=== PATIENT | female | born 1945 | race Caucasian/White ===

== ENCOUNTER 2017-12-30 13:55 | Outpatient (CLI) | payer MEDICARE ==
[2017-12-30 15:10] LABS: Mean Corpuscular HGB CONC 32.7 g/dL (32.0-36.0); Mean Corpuscular Hemoglobin 30.1 pg (27.0-31.0); Mean Platelet Volume 7.2 fL (7.4-10.4); Platelet Count 287 thou/uL (130-400); RBC Distribution Width 12.9 % (11.5-14.5); Red Blood Cell (RBC) Count 4.31 mill/uL (4.20-5.40); White Blood Cell (WBC) Count 5.8 thou/uL (4.8-10.8)
[2017-12-30 15:23] LABS: INR-International Normal Ratio 0.9; PTT 25.4 SEC (22.9-36.1); Prothrombin Time 12.2 SEC (12.0-14.7)
[2017-12-30 15:31] LABS: ALT (SGPT) 19 U/L (8-55); AST (SGOT) 23 U/L (5-34); Albumin 4.2 g/dL (3.4-4.8); Alkaline Phosphatase 92 U/L (40-150); Anion Gap 11 mmol/L (10-20); BUN (Urea Nitrogen) 27 mg/dL (9.8-20.1); Bilirubin, Total 0.3 mg/dL (0.2-1.2); Calc. Creatinine Clearance 0 mL/min (70-130); Calcium 9.1 mg/dL (7.8-10.44); Carbon Dioxide 22 mmol/L (23-31); Chloride 107 mmol/L (98-107); Estimated GFR-MDRD 41; Globulin 2.5 g/dL (2.4-3.5); Glucose 105 mg/dL (83-110); Protein, Total 6.7 g/dL (6.0-8.3); Sodium 136 mmol/L (136-145)
--- NOTE | 2018-01-01 17:37 | EKG ---
Test Reason : Blood Pressure : / mmHG Vent. Rate : 062 BPM Atrial Rate : 062 BPM P-R Int : 142 ms QRS Dur : 092 ms QT Int : 460 ms P-R-T Axes : 079 074 122 degrees QTc Int : 466 ms Normal sinus rhythm Possible Left atrial enlargement Left ventricular hypertrophy Nonspecific ST and T wave abnormality Abnormal ECG When compared with ECG of 10-OCT-2016 15:44, Nonspecific T wave abnormality now evident in Inferior leads Confirmed by DR. Guillermo CUNNINGHAM ([id number]) on 01/01/2018 5:37:09 PM Referred By: JAYCEE Confirmed By:DR. Guillermo CUNNINGHAM
== END 2017-12-30 13:56 | disposition home or self-care (01) ==
LOC: LABBT 13:55
PROVIDERS: ATTEND Internal Medicine Cardiovascular Disease
DX: Z01.818 Encounter for other preprocedural examination (principal); I25.119 Atherosclerotic heart disease of native coronary artery with unspecified angina pectoris
CPT/HCPCS: 80053; 85027; 85610; 85730; 93005; 93010

== ENCOUNTER 2018-01-02 06:53 | Day surgery (SDC) | payer MEDICARE ==
[2017-12-30 14:05] VITALS: BMI 25.1
[2018-01-02 08:09] LABS: Cardiac Risk 3.2 (Less than 4.5)
[2018-01-02] MEDS ORDERED: Lidocaine 1% (PF) 30 ML VIAL ONE (08:09)
[2018-01-02] MEDS ORDERED: Midazolam HCl 2 mg/2 ml Vial ONE (09:08)
[2018-01-02] MEDS ORDERED: Fentanyl 100 MCG/2 ML VIAL ONE (09:08)
[2018-01-02] MEDS ORDERED: Heparin 10,000 UNITS/1 ML VIAL ONE (09:27)
[2018-01-02] MEDS ORDERED: Clopidogrel Bisulfate 300 MG TAB ONE (10:15)
[2018-01-02] MEDS ORDERED: hydrALAZINE 20 MG/ML VIAL ONE (10:25)
== END 2018-01-02 15:49 | disposition home or self-care (01) ==
LOC: CCL 06:53
PROVIDERS: ATTEND Internal Medicine Cardiovascular Disease
PROC: 4A023N7 Measurement of Cardiac Sampling and Pressure, Left Heart, Percutaneous Approach (ICD-10-PCS; principal; 2018-01-02)
DX: I25.119 Atherosclerotic heart disease of native coronary artery with unspecified angina pectoris (principal); E11.9 Type 2 diabetes mellitus without complications; I50.9 Heart failure, unspecified; E03.9 Hypothyroidism, unspecified; G25.81 Restless legs syndrome; Z88.5 Allergy status to narcotic agent; Z88.8 Allergy status to other drugs, medicaments and biological substances; Z95.5 Presence of coronary angioplasty implant and graft; Z98.890 Other specified postprocedural states
CPT/HCPCS: 80061; 82962; 85347 ×3; 93005; 93458; C1769 ×2; C1874; C1887; C9600; C9601; 36416; 92928; 92929; 93010; 99152; 99153; J0360; J1644; J2001; J2250; J3010

== ENCOUNTER 2018-04-22 10:28 | Outpatient (CLI) | payer MEDICARE ==
[2018-04-22] MEDS ORDERED: Iopamidol 370 76% 100 ML VIAL ONE (12:19)
--- NOTE | 2018-04-22 13:33 | CT ---
CT ABDOMEN AND PELVIS WITH IV CONTRAST: INDICATIONS: Abdominal pain. TECHNIQUE: Multiple axial tomograms obtained through the abdomen and pelvis with IV enhancement. Oral contrast was given. FINDINGS: The lung base is clear. The liver, spleen, and pancreas appear unremarkable. There is soft tissue prominence at the EG junction. A mucosal mass at this location needs to be excl uded. This density has a mass-like appearance on coronal imaging and measures up to 2.3 cm. The adrenal glands are normal. The kidneys are unremarkable. There is a small, 1.5 cm cyst in the right renal cortex. No hydroneph rosis or urinary calculus. The urinary bladder is unremarkable. Small bowel loops appear normal. There is abnormal mural thickening involving the right colon. Some of this may be due to poor disten tion; however, the bowel wall thickness appears prominent. Recommend correlation with colonoscopy. Diverticulosis of the left colon and sigmoid. Mild mural thickening in this region. No CT evidence of diverticulitis. The aorta is of normal caliber. No adenopathy identified. Images through the pelvis show an unremarkable uterus and adnexa. Postoperative changes of the lumbar spine. Abnormal sclerosis involving the left ilium, probably rel ated to prior bone harvest. IMPRESSION: 1. Abnormal mass like area seen at the esophagogastric junction. Recommend correlation with endosco py. 2. Evidence of mural thickening and mild luminal narrowing in the right colon. Consider colonoscopy to further evaluate. 3. Small right renal cyst. 4. Diverticulosis without CT evidence of diverticulitis. POS: [facility]
== END 2018-04-22 10:29 | disposition home or self-care (01) ==
LOC: SCSCT 10:28
PROVIDERS: ATTEND Internal Medicine Gastroenterology
DX: R10.31 Right lower quadrant pain (principal); N28.1 Cyst of kidney, acquired; K57.90 Diverticulosis of intestine, part unspecified, without perforation or abscess without bleeding; R93.3 Abnormal findings on diagnostic imaging of other parts of digestive tract
CPT/HCPCS: 74177

== ENCOUNTER 2018-10-23 08:33 | Outpatient (CLI) | payer MEDICARE ==
[2018-10-23 11:55] LABS: #Eosinphils 0.2 thou/uL (0.0-0.7); #Lymphocytes 1.9 thou/uL (1.20-3.40); #Monocytes 0.5 thou/uL (0.11-0.59); #Neutrophils 3.7 thou/uL (1.40-6.50); %Basophils 0.3 % (0.0-1.0); %Eosinophils 2.6 % (0.0-10.0); %Lymphocytes 30.1 % (21.0-51.0); %Monocytes 8.1 % (0.0-10.0); %Neutrophils 58.9 % (42.0-75.0); Hemoglobin 11.9 g/dL (12.0-16.0); Mean Corpuscular Hemoglobin 29.2 pg (27.0-31.0); Mean Corpuscular Volume 91.1 fL (78.0-98.0); Mean Platelet Volume 7.4 fL (7.4-10.4); Platelet Count 373 thou/uL (130-400); RBC Distribution Width 12.6 % (11.5-14.5); Red Blood Cell (RBC) Count 4.09 mill/uL (4.20-5.40); White Blood Cell (WBC) Count 6.2 thou/uL (4.8-10.8)
[2018-10-23 11:59] LABS: PTT 26.4 SEC (22.9-36.1); Prothrombin Time 13.2 SEC (12.0-14.7)
[2018-10-23 12:32] LABS: ALT (SGPT) 11 U/L (8-55); AST (SGOT) 17 U/L (5-34); Albumin 3.9 g/dL (3.4-4.8); Alkaline Phosphatase 152 U/L (40-150); Anion Gap 13 mmol/L (10-20); BUN (Urea Nitrogen) 19 mg/dL (9.8-20.1); Bilirubin, Total 0.4 mg/dL (0.2-1.2); Calc. Creatinine Clearance 0 mL/min (70-130); Calcium 9.1 mg/dL (7.8-10.44); Carbon Dioxide 22 mmol/L (23-31); Chloride 109 mmol/L (98-107); Estimated GFR-MDRD 52; Globulin 2.3 g/dL (2.4-3.5); Glucose 69 mg/dL (83-110); Potassium 3.7 mmol/L (3.5-5.1); Protein, Total 6.2 g/dL (6.0-8.3); Sodium 140 mmol/L (136-145)
== END 2018-10-23 08:34 | disposition home or self-care (01) ==
LOC: LABBT 08:33
PROVIDERS: ATTEND Internal Medicine Cardiovascular Disease
DX: Z01.812 Encounter for preprocedural laboratory examination (principal); I25.10 Atherosclerotic heart disease of native coronary artery without angina pectoris
CPT/HCPCS: 80053; 85025; 85610; 85730

== ENCOUNTER 2018-10-29 06:35 | Day surgery (SDC) | payer MEDICARE ==
[2018-10-23 11:54] VITALS: BMI 23.2
[2018-10-29 07:33] LABS: Cardiac Risk 3.5 (Less than 4.5)
[2018-10-29] MEDS ORDERED: Midazolam HCl 2 mg/2 ml Vial ONE (08:38)
[2018-10-29] MEDS ORDERED: Fentanyl 100 MCG/2 ML VIAL ONE (08:38)
[2018-10-29] MEDS ORDERED: Heparin 10,000 UNITS/1 ML VIAL ONE (09:22)
[2018-10-29] MEDS ORDERED: hydrALAZINE 20 MG/ML VIAL ONE ×2 (09:41→11:10)
[2018-10-29] MEDS ORDERED: Morphine 2 MG/ML SYRINGE ONE (10:18)
[2018-10-29] MEDS ORDERED: Iopamidol 370 76% 50 ML VIAL FS ONE (10:53)
[2018-10-29] MEDS ORDERED: Iopamidol 370 76% 100 ML VIAL ONE (10:53)
[2018-10-29] MEDS ORDERED: HYDROcodone/Acetaminophen 5/325 mg Tablet ONE (12:33)
== END 2018-10-29 16:08 | disposition home or self-care (01) ==
LOC: CCL 06:35
PROVIDERS: ATTEND Internal Medicine Cardiovascular Disease
PROC: 4A023N7 Measurement of Cardiac Sampling and Pressure, Left Heart, Percutaneous Approach (ICD-10-PCS; principal; 2018-10-29)
PROC: B2111ZZ Fluoroscopy of Multiple Coronary Arteries using Low Osmolar Contrast (ICD-10-PCS; 2018-10-29)
PROC: 027034Z Dilation of Coronary Artery, One Artery with Drug-eluting Intraluminal Device, Percutaneous Approach (ICD-10-PCS; 2018-10-29)
DX: I25.10 Atherosclerotic heart disease of native coronary artery without angina pectoris (principal); R94.30 Abnormal result of cardiovascular function study, unspecified; I25.2 Old myocardial infarction; I10 Essential (primary) hypertension; Z79.02 Long term (current) use of antithrombotics/antiplatelets; Z79.82 Long term (current) use of aspirin; Z79.84 Long term (current) use of oral hypoglycemic drugs; Z79.899 Other long term (current) drug therapy; Z88.5 Allergy status to narcotic agent; Z88.6 Allergy status to analgesic agent; Z88.8 Allergy status to other drugs, medicaments and biological substances; Z95.5 Presence of coronary angioplasty implant and graft
CPT/HCPCS: 36415; 76942; 80061; 85347; 92928; 93005; 93458; 96374; 99152; 99153; C1769; C1874; C9600; J0360; J1644; J2250; J2270; J3010

== ENCOUNTER 2019-02-02 09:23 | Outpatient (CLI) | payer MEDICARE ==
--- NOTE | 2019-02-02 10:18 | MMO ---
Bilateral MAMMO Bilat Screen [facility]. CLINICAL HISTORY: Patient is 73 years old and is seen for screening. The patient has no family history of breast cancer. The patient has no personal history of cancer. VIEWS: The views performed were: bilateral craniocaudal with tomosynthesis and bilateral mediolateral oblique with tomosynthesis. FILMS COMPARED: The present examination has been compared to prior imaging studies performed at [facility] on 08/18/2006, and at [facility] on 04/18/1996 and 09/11/1999. MAMMOGRAM FINDINGS: There are scattered fibroglandular densities. There are benign appearing calcifications seen in both breasts. There are no suspicious masses, suspicious calcifications, or new areas of architectural distortion. IMPRESSION: THERE IS NO MAMMOGRAPHIC EVIDENCE OF MALIGNANCY. A ROUTINE FOLLOW-UP MAMMOGRAM IN 1 YEAR IS RECOMMENDED. THE RESULTS OF THIS EXAM WERE SENT TO THE PATIENT. ACR BI-RADS Category 2 - Benign finding MAMMOGRAPHY NOTE: 1. A negative mammogram report should not delay a biopsy if a dominant of clinically suspicious mass is present. 2. Approximately 10% to 15% of breast cancers are not detected by mammography. 3. Adenosis and dense breasts may obscure an underlying neoplasm.
== END 2019-02-02 09:24 | disposition home or self-care (01) ==
LOC: BICMAMMO 09:23
PROVIDERS: ATTEND Family Medicine
DX: Z12.31 Encounter for screening mammogram for malignant neoplasm of breast (principal)
CPT/HCPCS: 77063; 77067

== ENCOUNTER 2019-12-22 18:01 | Emergency (ER) | payer MEDICARE ==
[2019-12-22 18:31] LABS: #Eosinphils 0.1 thou/uL (0.0-0.7); #Lymphocytes 2.2 thou/uL (1.20-3.40); #Monocytes 0.7 thou/uL (0.11-0.59); #Neutrophils 3.5 thou/uL (1.40-6.50); %Basophils 0.7 % (0.0-1.0); %Eosinophils 2.2 % (0.0-10.0); %Lymphocytes 33.6 % (21.0-51.0); %Monocytes 10.5 % (0.0-10.0); %Neutrophils 53.1 % (42.0-75.0); Hemoglobin 13.1 g/dL (12.0-16.0); Mean Corpuscular HGB CONC 33.5 g/dL (32.0-36.0); Mean Corpuscular Hemoglobin 31.7 pg (27.0-31.0); Mean Corpuscular Volume 94.5 fL (78.0-98.0); Mean Platelet Volume 8.5 fL (7.4-10.4); Platelet Count 230 thou/uL (130-400); RBC Distribution Width 13.3 % (11.5-14.5); Red Blood Cell (RBC) Count 4.12 mill/uL (4.20-5.40); White Blood Cell (WBC) Count 6.6 thou/uL (4.8-10.8)
--- NOTE | 2019-12-22 18:42 | RAD ---
Portable frontal chest radiograph: 12/22/2019 COMPARISON: 10/10/2016 HISTORY: Hypertension and headache FINDINGS: There is prominent degenerative change of bilateral glenohumeral joints. There is stable wi dening of the right acromioclavicular interspace. Coronary arterial calcification and/or stent material present. No pneumothorax, pleural fluid, focal consolidation, or alveolar edema. IMPRESSION: No acute findings.
[2019-12-22 18:51] LABS: ALT (SGPT) 21 U/L (8-55); AST (SGOT) 20 U/L (5-34); Albumin 4.3 g/dL (3.4-4.8); Alkaline Phosphatase 133 U/L (40-110); Anion Gap 16 mmol/L (10-20); BUN (Urea Nitrogen) 34 mg/dL (9.8-20.1); Bilirubin, Total 0.3 mg/dL (0.2-1.2); Calc. Creatinine Clearance 0 mL/min (70-130); Carbon Dioxide 15 mmol/L (23-31); Chloride 112 mmol/L (98-107); Estimated GFR-MDRD 33; Globulin 2.4 g/dL (2.4-3.5); Glucose 82 mg/dL (83-110); Potassium 4.4 mmol/L (3.5-5.1); Protein, Total 6.7 g/dL (6.0-8.3); Sodium 139 mmol/L (136-145)
--- NOTE | 2019-12-22 19:14 | CT ---
Head CT without contrast 12/22/2019: COMPARISON: 10/10/2016 HISTORY: Elevated blood pressure, headache TECHNIQUE: Axial CT imaging at 5 mm intervals from vertex through skull base without contrast FINDINGS: The visualized paranasal sinuses and mastoid air cells are well aerated. No displaced twan rial fracture. No intracranial hemorrhage, midline shift, mass effect, or ventricular enlargement. IMPRESSION: No acute findings.
[2019-12-22] MEDS ORDERED: Acetaminophen 500 MG TAB ONE (19:46)
[2019-12-22] MEDS ORDERED: Metoclopramide HCl 10 MG/2 ML VIAL ONE (19:46)
[2019-12-22] MEDS ORDERED: diphenhydrAMINE 50 MG/ML VIAL ONE (19:46)
[2019-12-22] MEDS ORDERED: hydrALAZINE 25 MG TAB ONE (20:02)
--- NOTE | 2019-12-26 00:59 | EKG ---
Test Reason : Blood Pressure : / mmHG Vent. Rate : 067 BPM Atrial Rate : 067 BPM P-R Int : 132 ms QRS Dur : 092 ms QT Int : 438 ms P-R-T Axes : 066 045 078 degrees QTc Int : 462 ms Sinus rhythm with frequent Premature ventricular complexes in a pattern of bigeminy Possible Left atrial enlargement Left ventricular hypertrophy with repolarization abnormality Abnormal ECG Confirmed by CHRISTOFER NEWTON DO ([id number]), newspaper copy editor MIESHA WIGGINS ([id number]) on 12/26/2019 12:59:30 AM Referred By: Confirmed By:CHRISTOFER NEWTON DO
--- NOTE | 2019-12-26 00:59 | EKG ---
Test Reason : Blood Pressure : / mmHG Vent. Rate : 072 BPM Atrial Rate : 072 BPM P-R Int : 128 ms QRS Dur : 098 ms QT Int : 404 ms P-R-T Axes : 056 033 072 degrees QTc Int : 442 ms Sinus rhythm with frequent Premature ventricular complexes in a pattern of bigeminy Possible Left atrial enlargement Borderline ECG Confirmed by CHRISTOFER NEWTON DO ([id number]), commercial production editor MIESHA WIGGINS ([id number]) on 12/26/2019 12:59:28 AM Referred By: Confirmed By:CHRISTOFER NEWTON DO
== END 2019-12-22 21:25 | disposition home or self-care (01) ==
LOC: ERS 18:01
DX: I13.0 Hypertensive heart and chronic kidney disease with heart failure and stage 1 through stage 4 chronic kidney disease, or unspecified chronic kidney disease (principal); E11.22 Type 2 diabetes mellitus with diabetic chronic kidney disease; N18.3 Chronic kidney disease, stage 3 (moderate); I50.9 Heart failure, unspecified; R00.8 Other abnormalities of heart beat; M10.9 Gout, unspecified; G47.00 Insomnia, unspecified; I25.10 Atherosclerotic heart disease of native coronary artery without angina pectoris; E03.9 Hypothyroidism, unspecified; E78.5 Hyperlipidemia, unspecified; E78.00 Pure hypercholesterolemia, unspecified; M19.90 Unspecified osteoarthritis, unspecified site; F32.9 Major depressive disorder, single episode, unspecified; Z79.899 Other long term (current) drug therapy; Z79.02 Long term (current) use of antithrombotics/antiplatelets; Z79.82 Long term (current) use of aspirin; Z79.84 Long term (current) use of oral hypoglycemic drugs
CPT/HCPCS: 70450; 71045; 80053; 84484; 85025; 93005; 96365; 96375; J1200; J2765

== ENCOUNTER 2020-06-26 08:48 | Inpatient (IN) | payer MEDICARE, OTHER ==
[2020-06-26] MEDS ORDERED: Succinylcholine Chloride 20 MG/ML 10 ml SYRINGE FS ONE (09:02)
[2020-06-26] MEDS ORDERED: Calcium Chloride 1 GM/10 ML Abboject SYRINGE ONE (09:02)
[2020-06-26] MEDS ORDERED: EPINEPHrine 1 MG/10 ML Abboject SYRINGE ONE ×3 (09:02→15:16)
[2020-06-26 09:14] LABS: #Lymphocytes 0.9 thou/uL (1.20-3.40); #Monocytes 0.7 thou/uL (0.11-0.59); #Neutrophils 11.8 thou/uL (1.40-6.50); %Basophils 0.1 % (0.0-1.0); %Eosinophils 0.2 % (0.0-10.0); %Lymphocytes 6.6 % (21.0-51.0); %Monocytes 5.4 % (0.0-10.0); %Neutrophils 87.7 % (42.0-75.0); Hemoglobin 13.5 g/dL (12.0-16.0); Mean Corpuscular Hemoglobin 30.9 pg (27.0-31.0); Mean Corpuscular Volume 93.6 fL (78.0-98.0); Mean Platelet Volume 7.9 fL (7.4-10.4); Platelet Count 301 thou/uL (130-400); RBC Distribution Width 12.2 % (11.5-14.5); Red Blood Cell (RBC) Count 4.36 mill/uL (4.20-5.40); White Blood Cell (WBC) Count 13.5 thou/uL (4.8-10.8)
--- NOTE | 2020-06-26 09:22 | RAD ---
EXAM: XR Chest 1 View Portable PROVIDED CLINICAL HISTORY: Chest pain COMPARISON: 12/22/2019 FINDINGS: Cardiac and mediastinal silhouette is within normal limits. There is diffuse bilateral airspace disea se, predominating in the perihilar regions. Minimal blunting of the right costophrenic angle. No evidence for left pleural fluid. No evidence for pneumothorax. IMPRESSION: Diffuse bilateral airspace disease and blunting of the right costophrenic angle that may reflect pleu ral fluid.
[2020-06-26 09:36] LABS: ALT (SGPT) 25 U/L (8-55); AST (SGOT) 28 U/L (5-34); Albumin 3.6 g/dL (3.4-4.8); Alkaline Phosphatase 112 U/L (40-110); Anion Gap 15 mmol/L (10-20); BUN (Urea Nitrogen) 22 mg/dL (9.8-20.1); Bilirubin, Total 0.4 mg/dL (0.2-1.2); CK (CPK) 131 U/L (29-168); Calc. Creatinine Clearance 0 mL/min (70-130); Calcium 8.7 mg/dL (7.8-10.44); Carbon Dioxide 19 mmol/L (23-31); Chloride 111 mmol/L (98-107); Estimated GFR-MDRD 52; Globulin 2.4 g/dL (2.4-3.5); Glucose 147 mg/dL (83-110); Lipase 13 U/L (8-78); Potassium 4.7 mmol/L (3.5-5.1); Sodium 140 mmol/L (136-145)
[2020-06-26] MEDS ORDERED: cefTRIAXone\\ROCEPHIN 2 GM VIAL ONE (10:02)
[2020-06-26] MEDS ORDERED: Furosemide 40 MG/4 ML VIAL ONE (10:02)
[2020-06-26] MEDS ORDERED: Azithromycin 500 MG VIAL ONE (10:03)
[2020-06-26 10:41] LABS: SARS-CoV-2 NAA Rapid Test Not Detected (NotDetected)
[2020-06-26 12:38] LABS: Troponin I 0.032 ng/mL (< 0.028)
--- NOTE | 2020-06-26 13:03 | PDOC.HHP ---
Hospitalist HPI - History of Present Illness cough and difficulty breathing History of Present Illness: PCP: Dr. Benedict The patient is a 75-year-old female with past medical history significant for [place] , respiratory failure requiring intubation, congestive heart failure, and diabetes type 2. She presents to the ER today after being awake coughing all night. She states that she was of normal health until last night when she suddenly had difficulty breathing and had a cough that produced pink frothy tinged sputum. She states that she has been taking all of her medications as prescribed however she did not take this morning's dose. Patient endorses that she has some midsternal chest pain associated with the cough, she states it was not exacerbated or relieved with movement or rest. She was awake all night and she was unable to lie down and breathe effectively and the cough would not stop. She denies any swelling, ill contacts, abdominal pain, change in bowel or bladder habits. Patient states that she had an echo 2 months ago that was normal, will try to obtain results from Dr. Marlow. ED Course: Prior to arrival EMS administered 324 mg aspirin, 3 sprays nitro, and gave 1 inch Nitropaste to chest wall. In the ER they completed lab work, COVID swab, chest x-ray, and EKG. Hospitalist ROS - Review of Systems Constitutional: denies: fever, chills, sweats, weakness, malaise, other Eyes: denies: pain, vision change, conjunctivae inflammation, eyelid inflammation, redness, other ENT: denies: ear pain, ear discharge, nose pain, nose discharge, nose congestion , mouth pain, mouth swelling, throat pain, throat swelling, other Respiratory: reports: cough, shortness of breath, SOB with excertion, pleuritic pain, sputum (pink tinged) Cardiovascular: reports: chest pain Gastrointestinal: denies: nausea, vomiting, abdominal pain, diarrhea, constipation, melena, hematochezia, other Genitourinary: denies: dysuria, frequency, incontinence, hematuria, retention, other Musculoskeletal: denies: neck pain, shoulder pain, arm pain, back pain, hand pain, leg pain, foot pain, other Skin: denies: rash, lesions, haroldo, bruising, other Neurological: denies: weakness, numbness, incoordination, change in speech, confusion, seizures, other All other systems reviewed; all pertinent +/- noted in HPI/Subj - Medication Medications: Allergies: amitriptyline, aspirin (Unconfirmed), atorvastatin, carisoprodol, codeine sulfate, codeine (Unconfirmed), lisinopril, metformin, milnacipran, naproxen, nefazodone, niacin, NSAIDS (Non-Steroidal Anti-Inflamma, phenytoin, pioglitazone , pravastatin, rosuvastatin, sevelamer, simvastatin, sotalol (Unconfirmed), Udsoyek-Rsd-Vrh Reductase Inhibitor, tramadol, venlafaxine, zolpidem Current Medications: Lasix oral FriJun 26, 2020 10:00 JIGAR Story Angela TABLET : Strength - 40 mg : ORAL Patient Dose: 40 mg Oral every 12 hours PRN. isosorbide mononitrate FriJun 26, 2020 10:00 JIGAR Story Angela TABLET : Strength - 10 mg : ORAL Patient Dose: 10 mg Oral once a day. Plavix FriJun 26, 2020 10:00 JIGAR Story Angela TABLET : Strength - 75 mg : ORAL Patient Dose: 75 mg Oral once a day. pramipexole FriJun 26, 2020 10:00 JIGAR Story Angela tablet : Strength - 1 mg : ORAL Patient Dose: 1 mg Oral once a day. Toprol XL FriJun 26, 2020 10:00 JIGAR Story Angela tablet extended release 24 hr : Strength - 25 mg : ORAL Patient Dose: 0.5 tab(s) Oral 2 times a day (before meals). ferrous sulfate FriJun 26, 2020 10:00 JIGAR Story Angela tablet : Strength - 325 mg (65 mg iron) : ORAL Patient Dose: 325 mg Oral once a day. levothyroxine oral FriJun 26, 2020 10:00 JIGAR Story Angela tablet : Strength - 125 mcg : ORAL Patient Dose: 150 mcg Oral once a day (in the morning). Januvia FriJun 26, 2020 10:00 JIGAR Story Angela tablet : Strength - 50 mg : ORAL Patient Dose: 50 mg Oral once a day (in the morning). Entresto FriJun 26, 2020 10:01 JIGAR Story Angela tablet : Strength - 97 mg-103 mg : ORAL Patient Dose: 1 tab(s) Oral 2 times a day (before meals). Trintellix Mon Jun 26, 2020 10:01 JIGAR Story, Olena tablet : Strength - 5 mg : ORAL Patient Dose: 5 mg Oral once a day (in the morning). Hospitalist History - Past Medical History Source: patient, RN notes reviewed, old records Cardiac: reports: CAD, CHF, HTN, [place] Pulmonary: reports: previously intubated Gastrointestinal: reports: Constipation Psych: reports: Depression Musculoskeletal: reports: Osteoarthritis Rheumatologic: reports: Gout Renal/: reports: Chronic renal failure Endocrine: reports: Diabetes - Past Surgical History Past Surgical History: reports: Other Other Surgical History: 9 cardiac stents, 1 stent in right carotid, left TKR, low back surgery, colon resection, hernia repair, rectocele repair - Family History Family History: reports: no pertinent history - Social History Smoking Status: Never smoker Alcohol: reports: None Drugs: reports: none Living Situation: Alone Occupation: retired Activity level: independent ambulation - Exam General Appearance: NAD, awake alert General - other findings: VS: BP 172/78, P 92, R 23, T 98.7, O2 100% 2L Neck: supple, no lymphadenopathy, JVD Heart: RRR (S3 auscultated), no murmur, no rubs, normal peripheral pulses Respiratory: normal chest expansion, rhonchi, tachypneic Respiratory - other findings: Increased GONSALVES, able to complete full sentences, diminished bilateral Gastrointestinal: soft, non-tender, non-distended, normal bowel sounds Extremities: no cyanosis, no edema Neurological: cranial nerve grossly intact, no focal deficits Psychiatric: normal affect, normal behavior Hospitalist Results - Labs Result Diagrams: 06/26/20 09:06 06/26/20 09:06 Lab results: WBC 13.5 thou/uL (4.8-10.8) H 06/26/20 09:06 Hgb 13.5 g/dL (12.0-16.0) 06/26/20 09:06 Hct 40.8 % (36.0-47.0) 06/26/20 09:06 MCV 93.6 fL (78.0-98.0) 06/26/20 09:06 Plt Count 301 thou/uL (130-400) 06/26/20 09:06 Neutrophils % 87.7 % (42.0-75.0) H 06/26/20 09:06 Sodium 140 mmol/L (136-145) 06/26/20 09:06 Potassium 4.7 mmol/L (3.5-5.1) 06/26/20 09:06 Chloride 111 mmol/L (98-107) H 06/26/20 09:06 Carbon Dioxide 19 mmol/L (23-31) L 06/26/20 09:06 BUN 22 mg/dL (9.8-20.1) H 06/26/20 09:06 Creatinine 1.04 mg/dL (0.6-1.1) 06/26/20 09:06 Glucose 147 mg/dL (83-110) H 06/26/20 09:06 Calcium 8.7 mg/dL (7.8-10.44) 06/26/20 09:06 Total Bilirubin 0.4 mg/dL (0.2-1.2) 06/26/20 09:06 AST 28 U/L (5-34) 06/26/20 09:06 ALT 25 U/L (8-55) 06/26/20 09:06 Alkaline Phosphatase 112 U/L (40-110) H 06/26/20 09:06 Creatine Kinase 131 U/L (29-168) 06/26/20 09:06 Troponin I 0.032 ng/mL (< 0.028) H 06/26/20 12:01 B-Natriuretic Peptide 1571.8 pg/mL (0-100) H 06/26/20 09:00 Serum Total Protein 6.0 g/dL (6.0-8.3) 06/26/20 09:06 Albumin 3.6 g/dL (3.4-4.8) 06/26/20 09:06 Lipase 13 U/L (8-78) 06/26/20 09:06 Laboratory Tests 06/26/20 06/26/20 06/26/20 09:00 09:06 09:35 Troponin I 0.022 B-Natriuretic Peptide 1571.8 H SARS-CoV-2 Rap RNA(RT-PCR) Not Detected 06/26/20 12:01 Troponin I 0.032 H B-Natriuretic Peptide SARS-CoV-2 Rap RNA(RT-PCR) - EKG Interpretation EKG: SR 97 bpm, no ectopic beats - Radiology Interpretation Chest x-ray Status: image reviewed by me, report reviewed by me Additional Comment: FINDINGS: Cardiac and mediastinal silhouette is within normal limits. There is diffuse bilateral airspace disease, predominating in the perihilar regions. Minimal blunting of the right costophrenic angle. No evidence for left pleural fluid. No evidence for pneumothorax. IMPRESSION: Diffuse bilateral airspace disease and blunting of the right costophrenic angle that may reflect pleural fluid. Hospitalist H&P A/P - Problem (1) Acute respiratory failure with hypoxia Code(s): J96.01 - ACUTE RESPIRATORY FAILURE WITH HYPOXIA Status: Acute (2) Hypertensive emergency Code(s): I16.1 - HYPERTENSIVE EMERGENCY Status: Acute (3) CHF (congestive heart failure) Code(s): I50.9 - HEART FAILURE, UNSPECIFIED Status: Acute (4) Acute pulmonary edema Code(s): J81.0 - ACUTE PULMONARY EDEMA Status: Acute (5) Depression Code(s): F32.9 - MAJOR DEPRESSIVE DISORDER, SINGLE EPISODE, UNSPECIFIED Status : Chronic (6) Type 2 diabetes mellitus Status: Chronic Qualifiers: Diabetes mellitus complication status: without complication Qualified Code( s): E11.9 - Type 2 diabetes mellitus without complications - Plan Plan: Respiratory failure with hypoxia Patient requiring 2 L of oxygen when normally not oxygen dependent at home Maintaining 95% O2 saturation on 2 L, able to complete sentences Continue to monitor O2 saturations with vital signs and PRN Wean oxygen when able Rapid COVID-19 swab negative Hypertensive emergency Restart home medications PRN antihypertensives to keep SBP less than 180 Cardiology to be consulted Congestive heart failure Obtain echo results from 2 months ago Continue to diurese Acute pulmonary edema Repeat chest x-ray in a.m. Continue monitor respiratory status Possible pneumonia Continue IV antibiotics Repeat chest x-ray in a.m. Depression Restart home medications Type 2 diabetes Monitor Accu-Cheks AC at bedtime Mild SSI CODE STATUS: Full Surrogate decision maker: DaughterChela and son Lenny Guillermo Patient discussed with Dr. Corral and Dr. Marlow
[2020-06-26 13:38] LABS: Actual Bicarbonate (HCO3a) 12.6 mEq/L (22-28); Base Excess (BEa) -18.7 mEq/L (-2.0 to +3.0); Calcium, Ionized (arterial) 1.23 mmol/L (1.12-1.30); Carboxyhemoglobin (COHb) 0.9 gm% (0.0-3.0); Hemoglobin (Hb) 15.6 g/dL (12.0-16.0); Potassium - ABG Lab 4.62 mmol/L (3.70-5.30)
[2020-06-26 13:39] LABS: O2 Tension (PaO2), arterial 58.8 mmHg (> 70.0); Puncture Site RRA; pH, Arterial 7.01 (7.35-7.45)
[2020-06-26] MEDS ORDERED: Midazolam HCl 2 mg/2 ml Vial IVP SCH (13:45)
[2020-06-26] MEDS ORDERED: Dextrose 50% Abboject 50 ML SYRINGE SLOW IVP PRN (13:47)
[2020-06-26] MEDS ORDERED: Dextrose 5% in Water 1,000 ML IV PRN (13:47)
[2020-06-26] MEDS ORDERED: HumaLOG 300 UNITS/3 ML VIAL SC PRN ×2 (13:47)
[2020-06-26] MEDS ORDERED: Furosemide 40 MG/4 ML VIAL SLOW IVP SCH (14:00)
[2020-06-26 14:10] VITALS: BP 124/63
--- NOTE | 2020-06-26 14:10 | PDOC.HOSPP ---
- Subjective Encounter Date: 06/26/20 Encounter Time: 14:08 Subjective: renato admitted out of ED with PNA, hypoxemia. decompensated in elevator on way to Rm [id number]. on my arrival she was mottled with foamy pinkish spum being suctiond from mouth. - Objective Result Diagrams: 06/26/20 09:06 06/26/20 09:06 - Exam Neck: JVD Heart: RRR Respiratory - other findings: diffuse coarse BS with rhonchi Gastrointestinal: soft, non-distended, normal bowel sounds Extremities: no edema Hosp A/P (1) Acute pulmonary edema Code(s): J81.0 - ACUTE PULMONARY EDEMA Status: Acute (2) Hypertensive crisis Code(s): I16.9 - HYPERTENSIVE CRISIS, UNSPECIFIED Status: Acute (3) CAD (coronary artery disease) Code(s): I25.10 - ATHSCL HEART DISEASE OF [place] CORONARY ARTERY W/O ANG PCTRS Status: Acute Qualifiers: Coronary Disease-Associated Artery/Lesion type: [place] artery [place] vs. transplanted heart: [place] heart Associated angina: without angina Qualified Code(s): I25.10 - Atherosclerotic heart disease of [place] coronary artery without angina pectoris (4) Acute respiratory failure with hypoxia and hypercapnia Code(s): J96.01 - ACUTE RESPIRATORY FAILURE WITH HYPOXIA; J96.02 - ACUTE RESPIRATORY FAILURE WITH HYPERCAPNIA Status: Acute (5) Metabolic acidosis Code(s): E87.2 - ACIDOSIS Status: Acute - Plan patient intubated in room by ED physician subsequently became asystolic CPR started, multiple doses epinephrin then in PEA, cacium given with susequent RSR moved to CCU Dr Will assumed care TROP, ABG , CXR pending 1 hr spent face to face
--- NOTE | 2020-06-26 14:20 | PDOC.EVN ---
Event Note - Event Note Event Note: pulmonary edema, initial EKG- sinus rhythm with no acute abnormality
[2020-06-26 14:25] LABS: Actual Bicarbonate (HCO3a) 8.2 mEq/L (22-28); Calcium, Ionized (arterial) 1.44 mmol/L (1.12-1.30); Carboxyhemoglobin (COHb) 0.6 gm% (0.0-3.0); Hemoglobin (Hb) 14.4 g/dL (12.0-16.0); O2 Tension (PaO2), arterial 263.7 mmHg (> 70.0); Potassium - ABG Lab 5.33 mmol/L (3.70-5.30)
[2020-06-26 14:27] LABS: pH, Arterial 7.01 (7.35-7.45)
[2020-06-26 14:28] LABS: Puncture Site RRA
[2020-06-26] MEDS ORDERED: Sodium Bicarb 50 MEQ/50 ML Abboject 8.4% SYRINGE ONE ×2 (14:28→15:11)
[2020-06-26 14:32] LABS: Troponin I 0.029 ng/mL (< 0.028)
[2020-06-26] MEDS ORDERED: Sodium Bicarbonate 150 MEQ in Dextrose 5% in Water 1,000 ML IV SCH (14:45)
[2020-06-26] MEDS ORDERED: Vecuronium 10 MG VIAL ONE (14:53)
--- NOTE | 2020-06-26 14:59 | RAD ---
CHEST 1 VIEW: HISTORY: Status post intubation. FINDINGS: Endotracheal tube placed in satisfactory location. NG tube is placed, the tip is in the distal esoph will. There is extensive bilateral alveolar edema which his definitely worse when compared to the earlier e xam, 9:11 a.m. the same date. There is evidence for some costophrenic angle blunting. IMPRESSION: Endotracheal tube in satisfactory location. Nasogastric tube tip is still in the distal esophagus. Findings were discussed with Nurse Otis who indicated that the NG tube had been pulled out after this study. Worsening with more extensive confl uent bilateral edema, particularly in the mid and upper lung zones bilaterally. CODE CR POS: [facility]
[2020-06-26] MEDS ORDERED: Meropenem 2 GM, Admixture Fee 1 EACH in Sodium Chloride 0.9% 100 ML IVPB SCH (15:00)
[2020-06-26] MEDS ORDERED: EPINEPHrine 4 MG in Dextrose 5% in Water 250 ML IV SCH (15:15)
[2020-06-26] MEDS ORDERED: Vancomycin 1 GM in Premix Bag 1 BAG IVPB SCH ×2 (16:00→21:00)
--- NOTE | 2020-06-26 16:39 | CON ---
DATE OF CONSULTATION: 06/26/2020 REASON FOR CONSULTATION: Shortness of breath. HISTORY OF PRESENT ILLNESS: Ms. Ceballos was a 75-year-old white female, who came to the hospital after having coughing yesterday. Every time she coughs, she would have chest pain. She comes in. She suddenly got severely short winded and had to be intubated to protect her airway. Her sats were low. It was very hard to oxygenate her. She was admitted to the ICU. On my evaluation, she was intubated, off any sedation. She apparently had a PEA arrest downstairs in the ER and brief episodes of CPR. On my evaluation, she has myoclonic jerking, unable to give any history due to being intubated. PAST MEDICAL HISTORY: 1. Coronary artery disease, status post stenting to the OM, RCA and LAD. 2. Earlier this year, she had the flu and had a similar admission, where she was intubated and had a reduced EF. At that point, her EF was about 35% to 40% and she had been on medications for heart failure and the last echo was in March of this year and her EF was 45% to 50%, significantly improved. 3. Hyperthyroidism. 4. Anxiety and depression. 5. Irritable bowel syndrome. SURGICAL HISTORY: 1. Left carotid surgery in 2001. 2. Lumbar fusion. 3. Several heart catheterizations in the past. 4. Hernia repair. 5. Left total knee replacement. 6. Lens implants bilaterally. FAMILY HISTORY: Heart disease in family members. SOCIAL HISTORY: No alcohol, tobacco, or drugs. ALLERGIES: 1. AMBIEN. 2. ELAVIL. 3. NIACIN. 4. ACTOS. 5. ALEVE. 6. CRESTOR. 7. DILANTIN. 8. EFFEXOR. 9. LIPITOR. 10. METFORMIN. 11. PRAVACHOL. 12. SAVELLA. 13. SOTALOL. 14. TRAMADOL. 15. ZOCOR. 16. SOMA. OUTPATIENT MEDICATIONS: Reviewed. REVIEW OF SYSTEMS: Unobtainable. PHYSICAL EXAMINATION: VITAL SIGNS: Reviewed. On my evaluation, blood pressure was 128/62, pulse in the 120s, saturating 86% on 100% FiO2 on the ventilator. Frothy white sputum coming out of the tube. GENERAL: Sedated, intubated. NECK: Supple. LUNGS: Have coarse breath sounds bilaterally. CARDIOVASCULAR: Tachycardic. Distant heart sounds. ABDOMEN: Soft. EXTREMITIES: No edema. SKIN: Warm and dry. LABORATORY DATA: Laboratory work was reviewed. White count of 13, hemoglobin 13, hematocrit 40, and platelet count of 301. ABG, pH of 7.01. Chemistries; troponin was actually negative x3. Her initial troponin was 0.02. Her second one was 0.03, which was in the indeterminate range, and the next one was already coming down at 0.029. BNP was 1571. Glucose was 174, albumin of 3.6. COVID PCR was negative. Influenza A and B were both negative. Respiratory viral culture was pending at time of this dictation. Chest x-ray was reviewed. PLAN AND ASSESSMENT: 1. Acute hypoxic respiratory insufficiency. 2. Metabolic acidosis. 3. Most likely multilobar pneumonia. 4. Exacerbated by likely flash pulmonary edema. Ms. Ceballos was severely ill and actually had to be coded about four times before the family was contacted and they decided to make her DNR/DNI. She was on epinephrine drip. Stat echocardiogram was ordered for concern of either new onset severe reduced cardiomyopathy or new severe MR. At this point, it was unclear, but most likely, there was a septic-type picture. Family decided to disconnect and she just a few minutes later. 90 minutes of critical care time. Job ID: [id number]
[2020-06-26] MEDS ORDERED: Aspirin Chewable 81 MG TAB PO SCH (21:00)
[2020-06-26] MEDS ORDERED: Meropenem 2 GM in Admixture Fee 1 EACH IVPB SCH (22:00)
--- NOTE | 2020-06-27 00:08 | CON ---
DATE OF CONSULTATION: 06/26/2020 HISTORY OF PRESENT ILLNESS: Ms. Ceballos was a 75-year-old female admitted with complaints of shortness of breath, cough, and pleurisy. She was admitted to the telemetry unit. A code green was called. Code tamika was called shortly thereafter and she was intubated and transferred to the ICU. PAST MEDICAL HISTORY: Remarkable for: 1. Coronary artery disease, status post multiple stents, which were all patent when Dr. Marlow took her to the slab stripper just over a year ago. 2. History of respiratory failure at [facility] with influenza, complicated by congestive heart failure with improvement of her left ventricular function afterwards per my discussion with Dr. Marlow. 3. History of diabetes. 4. History of hypertension. 5. History of respiratory failure in the past. 6. History of depression. 7. History of osteoarthritis. 8. History of gout. 9. History of chronic kidney disease. 10. History of carotid stenting on the right. 11. History of multiple cardiac stents that were patent on last cardiac catheterization. 12. History of left knee replacement. 13. History of low back surgery. 14. History of colon resection. 15. History of herniorrhaphy. 16. History of rectocele repair. FAMILY HISTORY: Negative for lung disease in early age. She was a nonsmoker and nondrinker. She lost her a few years back. He was a patient of mine and passed of lung cancer. REVIEW OF SYSTEMS: A 10-point review of systems could not be obtained secondary to her being intubated. PHYSICAL EXAMINATION: VITAL SIGNS: On arrival in the ICU, blood pressures in the 120s to 130s, heart rate was 120. She was in sinus rhythm. Respiratory rate was set on a rate of 24, which was increased up to a rate of 30. Her first blood gas showed a severe metabolic acidosis, so bicarbonate was given and a bicarb drip was started. LUNGS: Remarkable for coarse rhonchorous breath sounds bilaterally. HEART: Regular rhythm. ABDOMEN: She had grade 2/6 systolic murmur. ABDOMEN: Soft and nontender. EXTREMITIES: Without clubbing, cyanosis, or edema. Apparently, her extremities were mottled earlier, but these had improved by the time I saw her. She reportedly had no abdominal discomfort in the emergency room on exam but two different caregivers. LABORATORY DATA: White count 13.5, hemoglobin 13.5 platelets 301. Sodium 140, potassium 4.7, chloride 111, bicarb 19, BUN 22, creatinine 1.04. BNP was 1571. Troponin was 0.022, then 0.032, and 0.029. PH 7.01, CO2 of 51, PO2 of 58. After the code and bicarb with a rate of 30 and a tidal volume of 500, pH is still 7.01, CO2 is 33, but PO2 is to 263. Shortly thereafter, she was given more bicarb. Bicarb drip was started and epinephrine graph was started. In spite of extremely generous doses of epinephrine, she became hypotensive again. She was given an additional dose of epinephrine 1 mg to hopefully allow family to arrive. I talked to the daughter while she was in the parking lot who informed me that she did not want her mother to go through any more codes. A [id number] status order was entered. When family arrived, Ms. Ceballos survived for another 10-15 minutes approximately. She was pronounced at 1557. Body will be released to the home. Family does not want an autopsy. It clinically appears that she may have started with pneumonia and then developed decompensated heart failure. She had copious amounts of pink frothy sputum coming out of her endotracheal tube to such a degree that she would have to be Ambu bagged intermittently to ventilator adequately. Critical care time with the patient was 2 hours and 15 minutes. Critical care time 2 hours excluding procedures. Job ID: [id number] MTDD
[2020-06-27] MEDS ORDERED: Meropenem 2 GM, Admixture Fee 1 EACH in Sodium Chloride 0.9% 100 ML IVPB SCH (03:00)
[2020-06-27] MEDS ORDERED: Levothyroxine Sodium 88 MCG TAB PO SCH (06:00)
--- NOTE | 2020-06-27 06:01 | OP ---
DATE OF PROCEDURE: 06/26/2020 PROCEDURES PERFORMED: Central line placement and arterial line placement, both done emergently after code. DESCRIPTION OF PROCEDURE: Right groin was shaved and prepped with chlorhexidine and Betadine. Right femoral vein was easily cannulated with an introducer needle. J-wire was passed. Triple-lumen catheter was inserted after a vein dilator and sewn in place. Good blood return was obtained from all three ports. A 5-Macanese femoral artery catheter was located in the operating suite supply room. I was able to get an introducer needle and a wire into the femoral artery on the right, but could not get the catheter to pass completely. Eventually, that procedure was terminated. Job ID: [id number]
--- NOTE | 2020-06-27 07:01 | DIS ---
DATE OF ADMISSION: 06/26/2020 DATE OF DISCHARGE: 06/26/2020 PRIMARY CARE PROVIDER: Dr. Benedict. DATE AND TIME OF : 06/26/2020 at 1557 hours. FINAL DIAGNOSES: 1. Acute respiratory failure with hypoxemia, hypercapnia. 2. Acute metabolic acidosis. 3. Acute hypertensive urgency. 4. Acute pulmonary edema. 5. Coronary artery disease, post multiple percutaneous coronary interventions. 6. Cardiomyopathy, 40%. 7. Diabetes mellitus, type 2. HOSPITAL COURSE: The patient admitted through the emergency room to the Hospitalist Service. The patient was seen initially by Isis Andrade, nurse practitioner. The patient did report she had been awake and coughing most of the night and she had, had some frothy-tinged sputum, had some pleuritic chest pain. Her initial EKG revealed sinus rhythm with no changes. Initial laboratory; lytes revealed sodium 140, potassium 4.7, CO2 of 19, BUN 22, and creatinine 1.04. White count 13.5, hemoglobin 13.5, and platelet count 301,000. Troponin initially normal, second one was 0.032. BNP was 1572. The patient was placed on oxygen and IV antibiotics. Chest x-ray on admission showed diffuse bilateral airspace disease, nonspecific. While being transferred to the Telemetry Service, the patient became acutely short of breath. When I first saw her in the room, she was having pink frothy sputum suctioned from her throat. She was diffusely mottled. Blood pressure was elevated with greater than 200 over greater than 100 blood pressure, saturations were very low. Emergency room physician responded and intubated the patient. At that point, her mottling, etc., was better. She did have a diffuse rhonchi throughout her chest. As we were attempting to move to ICU, she had a certain asystole. She received 3 units of epinephrine and had a pulseless electrical activity. She got an amp of calcium chloride, developed rhythm. She was moved to the intensive care unit. Dr. Coburn met me there and assumed her care. Chest x-ray there showed acute pulmonary edema pattern with an endotracheal tube in appropriate location. Prior to this discussion, there was no blood gas on the chart or available. At 1335 hours, she had a pH 7.01 with 51 CO2 and 58.8 O2. Her three cardiac enzymes were 0.022, 0.032, 0.029. The patient was treated with aspirin. Antibiotics were continued. She got IV sodium bicarbonate. She subsequently had another asystolic spell, after CPR had a rhythm, family was called. With family at bedside, Dr. Coburn had her status change from full resuscitation to no CPR. The patient became asystolic with no blood pressure at 1557 hours and was pronounced . Job ID: [id number]
[2020-06-27] MEDS ORDERED: Amlodipine 10 MG TAB PO SCH (09:00)
--- NOTE | 2020-06-30 12:39 | PQF ---
CLINICAL DOCUMENTATION CLARIFICATION FORM: Dear : Coco Corral MD Date / Time: 06/30/2020 Please exercise your independent, professional judgment in responding to the clarification form. Clinical indicators are provided on the bottom of this form for your review Please check appropriate box(es): [ ] Sepsis due to: [ ] Severe sepsis with associated acute organ dysfunction: [ ] Acute Respiratory Failure [ ] Acute Kidney injury w/o ATN [ ] Acute Kidney Injury w ATN [ ] Encephalopathy (metabolic) (septic) [ ] Disseminated Intravascular Coagulopathy (DIC) [ ] Hepatic Failure [ ] Additional/Other: please specify: [ ] Septic Shock [ ] Localized infection without sepsis [ x ] SIRS due to non-infectious process (please specify etiology) _due to metabolic acidosis [ ] with organ dysfunction [ ] without organ dysfunction [ x ] Other diagnosis (Please specify if any) acute pulmonary edema with respiratory failure [ ] Unable to determine In addition, please specify: Present on Admission (POA): [ ] Yes [ ] No [ ] Unable to determine Physician Signature: Date/Time: For continuity of documentation, please document condition throughout progress notes and discharge summary. Thank You. To be completed by CDI/Coding staff for physician review: Present Clinical Indicators - Signs / Symptoms / Labs Results and Location in Medical Record [ ] Altered mental status, increased confusion, obtunded [ ] Fever or hypothermia (<96.8 F/36 C or > 100.4 F/38C) [x ] Acute respiratory failure witth hypoxia H&P on 06/26 [ ] Heart Rate/Tachycardia (>90 bpm), SBP<100mmHg [ X ] Decompensated heart failure Consult on 06/26 [x ] Metabolic acidosis Lactic Acid >2mmol/L OR 36mg/dL, Hospital progress notes on 06/26 [ ] Oliguria , increase BUN/Cr, decreased GFR, elevated liver enzymes [ ] Coag abnormalities, thrombocytopenia plts <100k [ ] Shock-hypotension resistant to IV fluid boluses [ x] WBC count (>12,000/mm^4 or <4000/mm^3 or 70% neuts, 10% bands) WBC-13.5 H&P on 06/26 [ ] Hyperglycemia in absence of diabetes mellitus [ x] PNA Hospital progress notes on 06/26 Present Risk Factors Results and Location in Medical Record [ ] Infection/Bacteremia [ x] Pneumonia, UTI, infected wound, gangrenous gall bladder Diabetes or Cancer Consult on 06/26 [ ] Surgery / surgical instrumentation / trauma Ruptured/perforated bowel, ruptured appendix [ ] Immunosuppression [ x] Advancing Age H&P on 06/26 Present Treatments Results and Location in Medical Record [ ] Initiation Sepsis Protocol ICU [ ] Daily CBC, blood/sputum/wound cx [ ] ID Consult [ x] IV Antibiotics azithromycin 500mg Vancomycin 1gm IV Medications on 06/26 [ ] IV ?uids [ ] Vasopressors, meds [ ] Consultants; ID, GI, Pulmonary, Hematology CDS/[employer]rical And [employer]er Signature:LAWRENCE Phone #: Date/Time: 06/30/2020 This is a permanent part of the Medical Record [facility]
--- NOTE | 2020-07-15 11:19 | EKG ---
Test Reason : CP Blood Pressure : / mmHG Vent. Rate : 097 BPM Atrial Rate : 097 BPM P-R Int : 170 ms QRS Dur : 092 ms QT Int : 358 ms P-R-T Axes : 060 057 074 degrees QTc Int : 454 ms Normal sinus rhythm Minimal voltage criteria for LVH, may be normal variant Nonspecific ST abnormality Abnormal ECG Confirmed by FARZANA MAURICIO DO ([id number]), desk editor ERICK AVALOS ([id number]) on 07/15/2020 11:18:57 AM Referred By: LULY Confirmed By:FARZANA MAURICIO DO
== END 2020-06-26 15:57 | disposition expired | DRG 208 ==
LOC: ERS 08:48 → 2NO 11:36 → CCU 13:49
PROVIDERS: ADMIT Internal Medicine; ATTEND Internal Medicine
PROC: 5A12012 Performance of Cardiac Output, Single, Manual (ICD-10-PCS; principal; 2020-06-26)
PROC: 5A1935Z Respiratory Ventilation, Less than 24 Consecutive Hours (ICD-10-PCS; 2020-06-26)
PROC: 0BH17EZ Insertion of Endotracheal Airway into Trachea, Via Natural or Artificial Opening (ICD-10-PCS; 2020-06-26)
PROC: 04JY3ZZ Inspection of Lower Artery, Percutaneous Approach (ICD-10-PCS; 2020-06-26)
PROC: 02HV33Z Insertion of Infusion Device into Superior Vena Cava, Percutaneous Approach (ICD-10-PCS; 2020-06-26)
DX: J96.01 Acute respiratory failure with hypoxia (principal); J18.9 Pneumonia, unspecified organism; I50.23 Acute on chronic systolic (congestive) heart failure; I13.0 Hypertensive heart and chronic kidney disease with heart failure and stage 1 through stage 4 chronic kidney disease, or unspecified chronic kidney disease; I16.1 Hypertensive emergency; E87.2 Acidosis; I42.9 Cardiomyopathy, unspecified; R65.10 Systemic inflammatory response syndrome (SIRS) of non-infectious origin without acute organ dysfunction; Z66 Do not resuscitate; I16.0 Hypertensive urgency; J96.02 Acute respiratory failure with hypercapnia; I25.10 Atherosclerotic heart disease of native coronary artery without angina pectoris; F32.9 Major depressive disorder, single episode, unspecified; M19.90 Unspecified osteoarthritis, unspecified site; E11.22 Type 2 diabetes mellitus with diabetic chronic kidney disease; N18.9 Chronic kidney disease, unspecified; M10.9 Gout, unspecified; I46.9 Cardiac arrest, cause unspecified; Z20.828 Contact with and (suspected) exposure to other viral communicable diseases; Z96.652 Presence of left artificial knee joint; Z96.1 Presence of intraocular lens; K59.00 Constipation, unspecified; F41.9 Anxiety disorder, unspecified; K58.9 Irritable bowel syndrome, unspecified; E05.90 Thyrotoxicosis, unspecified without thyrotoxic crisis or storm; Z79.01 Long term (current) use of anticoagulants; I25.2 Old myocardial infarction; Z88.6 Allergy status to analgesic agent; Z88.8 Allergy status to other drugs, medicaments and biological substances; Z95.5 Presence of coronary angioplasty implant and graft; Z98.890 Other specified postprocedural states
CPT/HCPCS: 36415; 36416; 71045; 80053; 82550; 82805; 83690; 83880; 84484; 85025; 87040; 87070; 87205; 87804; 92950; 93005; 94002; 94760; 96365; 96367; 96375; C1751; J0171; J0456; J0696; J1940; J2250; J7070; U0002